=== PATIENT | female | born 1985 | race Asian ===

== ENCOUNTER → 2017-02-17 | Day surgery (SDC) | payer OTHER ==
--- NOTE | 2017-02-16 17:53 | GHP ---
[f rep st] PREOP HISTORY AND PHYSICAL DATE OF ADMISSION: 02/17/2017 CHIEF COMPLAINT: Missed at 5-6/7 weeks' gestation. HPI: The patient is a 31-year-old, G4, P1-0-2-1 female, who presents at 9 weeks 4 days by her last menstrual period, and was diagnosed with a missed at 5-6/7 weeks. The patient was given the option of medical management , expectant management, or dilation and curettage, and she opted for dilation and curettage. PAST MEDICAL HISTORY: Negative. PAST SURGICAL HISTORY: 1 previous D and C. OB HISTORY,: 1 , 1 induced , and 1 dilation and curettage. CAR PAINTER HISTORY: Noncontributory. FAMILY HISTORY: Her mother has hypertension, high cholesterol. Her father has melanoma and depression. REVIEW OF SYSTEMS: Negative for vaginal bleeding or cramping. PHYSICAL EXAM: VITAL SIGNS: Her blood pressure is 108/58, her pulse is 76. GENERAL: She is in no apparent distress. ABDOMEN: Soft. GENITOURINARY: She has normal external female genitalia. Transvaginal ultrasound shows a 2.28 cm pole with no cardiac activity, measuring at 5-6/7 weeks. ASSESSMENT AND PLAN: The patient is a 31-year-old, G4, P1-0-2-1 female, who has a missed at 5-6/7 weeks. The patient was counseled on expectant management, or misoprostol administration, or dilation and curettage. She opted for dilation and curettage. The risks of bleeding, infection, and damage to nearby organs were discussed. The patient understands these risks, and desires to proceed with the procedure. /[id number]/MODL MTDD
[~2017-02-17] MED LIST: ACETAMINOPHEN 500 MG TAB PO PRN; ALBUTEROL 3 ML DEYVIAL IH PRN; KETOROLAC 30 MG/1 ML SDV IVP ONE; LIDOCAINE 1% 300 MG/30 ML SDV ONE; LR 1,000 ML IV SCH; MIDAZOLAM 2 MG/2 ML VIAL IVP ONE; NALOXONE HCL 0.4 MG/ML INJ IVP PRN; ONDANSETRON 4 MG/2 ML VIAL IVP PRN; OXYCODONE/APAP 5/325 TAB PO PRN; PROPOFOL 200 MG/20 ML VIAL ONE; fentaNYL 100 MCG/2 ML INJ IVP PRN; fentaNYL 100 MCG/2 ML INJ ONE
[2017-02-17 08:33] LABS: % IMMATURE GRANULYOCYTES 0.4 % (0.0-1.1); ABSOLUTE IMMATURE GRANULOCYTES 0.03 10^3/uL (0.00-0.10); ADD DIFF? NO; ADD MORPH? NO; ADD SCAN? NO; ATYPICAL LYMPHOCYTE FLAG 0 (0-99); FRAGMENT RBC FLAG 0 (0-99); HEMOGLOBIN 13.8 g/dL (12.6-16.3); LEFT SHIFT FLG 0 (0-99); LIPEMIA HEMOLYSIS FLAG 90 (0-99); MEAN CELL HEMOGLOBIN 31.2 pg (27.9-34.1); MEAN CELL HEMOGLOBIN CONCENTR. 34.5 g/dL (32.4-36.7); MEAN CELL VOLUME 90.5 fL (81.5-99.8); MEAN PLATELET VOLUME 8.5 fL (8.7-11.7); PLATELET CLUMPS FLAG 0 (0-99); PLATELET COUNT 270 10^3/uL (150-400); RED BLOOD CELL COUNT 4.42 10^6/uL (4.18-5.33); RED CELL DISTRIBUTION WIDTH 12.7 % (11.5-15.2)
--- NOTE | 2017-02-17 11:34 | PDANEPAE ---
ANE History of Present Illness 31yo with missed ANE Past Medical History - Cardiovascular History Hx Hypertension: No Hx Arrhythmias: No Hx Chest Pain: No Hx Coronary Artery / Peripheral Vascular Disease: No Hx CHF / Valvular Disease: No Hx Palpitations: Yes - Pulmonary History Hx COPD: No Hx Asthma/Reactive Airway Disease: No Hx Recent Upper Respiratory Infection: No Hx Oxygen in Use at Home: No - Chronic Pain History Chronic Pain: No ANE Review of Systems Review of systems is: negative - Exercise capacity Exercise capacity: >=4 METS ANE Patient History - Allergies Allergies/Adverse Reactions: No Known Allergies Allergy (Verified 08/24/15 05:55) - Home Medications Home Medications: [place]-3/Dha/Epa/Fish Oil [Fish Oil Dr 500 mg Softgel] 08/24/15 [Last Taken Unknown] Vit27&Calcium/Iron/FA [] 1 each PO 08/24/15 [Last Taken Unknown ] - NPO status NPO Since - Liquids (Date): 02/17/17 NPO Since - Liquids (Time): 19:30 NPO Since - Solids (Date): 02/17/17 NPO Since - Solids (Time): 19:30 - Anes Hx Anes Hx: no prior problems - Smoking Hx Smoking Status: Never smoked ANE Labs/Vital Signs - Labs Result Diagrams: 02/17/17 08:20 - Vital Signs Height: 162.56 cm Weight: 53.524 kg ANE Physical Exam - Airway Neck exam: FROM Mallampati Score: Class 1 Mouth exam: normal dental/mouth exam - Pulmonary Pulmonary: no respiratory distress - Cardiovascular Cardiovascular: no murmur, rub, or gallop - ASA Status ASA Status: II ANE Anesthesia Plan Anesthesia Plan: MAC
--- NOTE | 2017-02-17 12:50 | POSTANESTH ---
Post Anesthetic Evaluation Cardiovascular Status: Normal, Stable Respiratory Status: Normal, Stable Level of Consciousness/Mental Status: Mildly Sleepy, Arousable Pain Control: Adequate, Prn Tx Ordered Nausea/Vomiting Control: Adequate, Prn Tx Ordered Complications Possibly Related to Anesthesia: None Noted
--- NOTE | 2017-02-17 13:50 | GOP ---
[f rep st] OPERATIVE REPORT DATE OF OPERATION: 02/17/2017 SURGEON: Mary Graham MD ANESTHESIA: Monitored anesthesia care. PREOPERATIVE DIAGNOSIS: Missed at 6 weeks. POSTOPERATIVE DIAGNOSIS: Missed at 6 weeks. PROCEDURE PERFORMED: Suction dilation and curettage FINDINGS: Missed at 5-6/7 weeks. SPECIMENS: Products of conception. ESTIMATED BLOOD LOSS: Less than 10 mL. INDICATIONS: The patient is a 31-year-old female, who presented with a missed at 5-6/7 weeks' gestation and desired surgical management. DESCRIPTION OF PROCEDURE: The patient was taken to the operating room where she was prepped and draped in normal sterile fashion in the high dorsal lithotomy position. A surgical time-out was performed verifying the patient's name, date of , planned procedure, and site. A bivalve speculum was placed in the patient's vagina. The anterior aspect of the cervix was grasped with a single-tooth tenaculum. The cervix was dilated to 7 mm. The patient received a paracervical block with 10 mL of 1% lidocaine. The curved 7 cm suction curette was placed into the uterine cavity. The uterine contents were aspirated until the uterus was noted to be clamping down. Sharp curettage took place until a gritty endometrial texture was noted. The single-tooth tenaculum was removed. The bivalve speculum was removed. The patient tolerated the procedure well and was stable to the recovery room. All counts were correct x2. PROCEDURE PERFORMED: Suction, dilation, and curettage. COMPLICATIONS: None. OUTCOME: Stable to the recovery room. /[id number]/MODL MTDD
== END | disposition home or self-care (01) ==
LOC: FOBOP 07:23
PROVIDERS: ATTEND Obstetrics & Gynecology
PROC: 10D17ZZ Extraction of Products of Conception, Retained, Via Natural or Artificial Opening (ICD-10-PCS; principal; 2017-02-17)
DX: O02.1 Missed abortion (principal); Z3A.09 9 weeks gestation of pregnancy
CPT/HCPCS: J1885; J2250; J2704; J3010

== ENCOUNTER → 2017-07-17 | Outpatient (CLI) | payer OTHER | LOC: FIMAGING 12:24 | PROVIDERS: ATTEND Obstetrics & Gynecology | DX: Z36.82 Encounter for antenatal screening for nuchal translucency (principal) ==

== ENCOUNTER → 2017-09-11 | Outpatient (CLI) | payer OTHER | LOC: FIMAGING 07:33 | PROVIDERS: ATTEND Obstetrics & Gynecology | DX: O44.02 Complete placenta previa NOS or without hemorrhage, second trimester (principal); Z3A.20 20 weeks gestation of pregnancy ==

== ENCOUNTER → 2017-09-21 | Outpatient (CLI) | payer OTHER | LOC: FIMAGING 09:04 | PROVIDERS: ATTEND Obstetrics & Gynecology | DX: R22.32 Localized swelling, mass and lump, left upper limb (principal) ==

== ENCOUNTER → 2017-11-27 | Outpatient (CLI) | payer OTHER | LOC: FIMAGING 13:08 | PROVIDERS: ATTEND Obstetrics & Gynecology | DX: O44.42 Low lying placenta NOS or without hemorrhage, second trimester (principal); Z3A.20 20 weeks gestation of pregnancy ==

== ENCOUNTER → 2018-02-21 | Outpatient (CLI) | payer OTHER | LOC: FIMAGING 08:45 | PROVIDERS: ATTEND Midwife | DX: N83.292 Other ovarian cyst, left side (principal) ==